=== PATIENT | male | born 1990 | race Caucasian/White ===

== ENCOUNTER 2019-09-18 10:04 | Emergency (ER) | payer SELFPAY ==
[2019-09-18 10:18] VITALS: BP 150/83; PULSE 97; TEMP 100.2; BMI 36.0
[2019-09-18] MEDS ORDERED: ACETAMINOPHEN 325 MG TABLET (FP) PO ONE (10:25)
[2019-09-18] MEDS ORDERED: predniSONE 20 MG TABLET (UD) PO ONE (10:25)
[2019-09-18] MEDS ORDERED: ACETAMINOPHEN 325 MG TABLET (FP) ONE (10:29)
[2019-09-18] MEDS ORDERED: predniSONE 20 MG TABLET (UD) ONE (10:29)
[2019-09-18] MEDS ORDERED: ALBUTEROL SO4 2.5/IPRATROPIUM 0.5 INH SOL 3 ML VIAL.NEB. NEB ONE (10:30)
[2019-09-18] MEDS: ALBUTEROL SO4 2.5/IPRATROPIUM 0.5 INH SOL 3 ML VIAL.NEB. NEB SCH ×4 (10:34→11:47)
--- NOTE | 2019-09-18 10:50 | PDOC ---
History of Present Illness - General Chief Complaint: Asthma Stated Complaint: COLD SYS Time Seen by Provider: 09/18/19 10:24 History Source: Patient - History of Present Illness Timing/Duration: reports: other Past History - Past Medical History Allergies/Adverse Reactions: Allergies Allergy/AdvReac Type Severity Reaction Status Date / Time No Known Allergies Allergy Verified 09/18/19 10:18 Home Medications: Ambulatory Orders predniSONE [Deltasone -] 40 mg PO DAILY #8 tablet 09/18/19 Asthma: Yes COPD: No - Immunization History Immunization Up to Date: Yes - Psycho Social/Smoking Cessation Hx Smoking History: Current every day smoker Have you smoked in the past 12 months: Yes Information on smoking cessation initiated: No Hx Alcohol Use: No (SOCIAL) Drug/Substance Use Hx: Yes (MARIJUANA) Review of Systems - Review of Systems Constitutional: Yes: Chills, Fever HEENTM: No: Ear Pain, Throat Pain Respiratory: Yes: Cough, Shortness of Breath, Wheezing *Physical Exam - Vital Signs Last Vital Signs Temp Pulse Resp BP Pulse Ox 100.2 F H 97 H 19 150/83 97 09/18/19 10:14 09/18/19 10:14 09/18/19 10:14 09/18/19 10:14 09/18/19 10:14 - Physical Exam General Appearance: Yes: Appropriately Dressed. No: Apparent Distress HEENT: positive: Normal ENT Inspection, Normal Voice, TMs Normal, Pharynx Normal. negative: Scleral Icterus (R), Scleral Icterus (L) Neck: positive: Supple. negative: Lymphadenopathy (R), Lymphadenopathy (L) Respiratory/Chest: positive: Lungs Clear, Normal Breath Sounds. negative: Respiratory Distress Cardiovascular: positive: Regular Rate, S1, S2 Integumentary: positive: Dry, Warm Neurologic: positive: Fully Oriented, Alert, Normal Mood/Affect ED Treatment Course - Medications Given in the ED: ED Medications Discontinued Medications Generic Name Dose Route Start Last Admin Trade Name Freq PRN Reason Stop Dose Admin Acetaminophen 650 mg 09/18/19 10:25 09/18/19 10:34 Tylenol - PO 09/18/19 10:26 650 mg ONCE ONE Administration Prednisone 60 mg 09/18/19 10:25 09/18/19 10:34 Deltasone - PO 09/18/19 10:26 60 mg ONCE ONE Administration Medical Decision Making - Medical Decision Making 09/18/19 13:44 29-year-old male history of asthma, no admissions or intubations, here with shortness of breath and wheezing in the setting of URI symptoms x several days. Per patient using his asthma pump with no relief. Denies fever. see exam Asthma flare in setting of m/l viral URI, pt declines flu swab Improved w/ nebs here Tylenol given for low grade fever -dc w/ pred taper -To return as needed Discharge - Discharge Information Problems reviewed: Yes Clinical Impression/Diagnosis: Asthma flare Qualifiers: Asthma severity: mild Asthma persistence: intermittent Qualified Code(s): J45.21 - Mild intermittent asthma with (acute) exacerbation Condition: Improved Disposition: HOME - Additional Discharge Information Prescriptions: predniSONE [Deltasone -] 40 mg PO DAILY #8 tablet - Follow up/Referral - Patient Discharge Instructions Patient Printed Discharge Instructions: Asthma -- Adult - Post Discharge Activity Work/Back to School Note: Back to Work
== END 2019-09-18 12:01 | disposition home or self-care (01) ==
LOC: JERFT 10:04
PROC: 3E0F7GC Introduction of Other Therapeutic Substance into Respiratory Tract, Via Natural or Artificial Opening (ICD-10-PCS; principal; 2019-09-18)
DX: J45.21 Mild intermittent asthma with (acute) exacerbation (principal); F17.210 Nicotine dependence, cigarettes, uncomplicated
CPT/HCPCS: 99283-25

== ENCOUNTER 2023-10-07 22:08 | Emergency (ER) | payer SELFPAY ==
[2023-10-07 22:23] VITALS: BP 112/62; PULSE 80; RESP 18; TEMP 98; BMI 36.8
[2023-10-07] MEDS ORDERED: ALBUTEROL SO4 HFA INHALER IH ONE (23:08)
[2023-10-07] MEDS: ALBUTEROL SO4 HFA INHALER IH ONE (23:09)
== END 2023-10-07 23:16 | disposition home or self-care (01) ==
LOC: JER 22:08
DX: Z76.0 Encounter for issue of repeat prescription (principal)
CPT/HCPCS: 99282-25